=== PATIENT | female | born 1960 | race Caucasian/White ===

== ENCOUNTER 2017-08-24 08:55 | Emergency (ER) | payer OTHER ==
[2017-08-24 09:05] VITALS: BP 165/94
--- NOTE | 2017-08-24 13:39 | UC ---
Karina Mcdaniel Thomas, scribed for Christian Lovell MD on 08/24/17 at 0920 . Skin Complaint HPI - HPI Summary HPI Summary: The patient is a 56 year old female complaining of left-sided facial swelling and redness that has worsened in the last two days. There is tenderness around the redness. The eye is not involved. She denies blurred vision, eye pain, fever , and chills. - History of Current Complaint Chief Complaint: UCSkin Time Seen by Provider: 08/24/17 09:05 Stated Complaint: RASH Hx Obtained From: Patient Onset/Duration: Still Present, Worse Since - 2 days Timing: Constant Onset Severity: Mild Current Severity: Mild Pain Intensity: 0 Pain Scale Used: 0-10 Numeric Location: Other - Left side of face Character: Swelling, Redness Aggravating Factor(s): Nothing Alleviating Factor(s): Nothing Associated Signs & Symptoms: Negative: Fever, Chills - Allergy/Home Medications Allergies/Adverse Reactions: Allergies Allergy/AdvReac Type Severity Reaction Status Date / Time No Known Allergies Allergy Verified 08/24/17 09:06 Home Medications: Home Medications Atorvastatin* [Lipitor 80 MG*] 80 mg PO DAILY 08/24/17 [History Confirmed ] Ezetimibe 10 mg PO DAILY 08/24/17 [History Confirmed 08/24/17] Lisinopril TAB* [Prinivil TAB 10 MG*] 20 mg PO DAILY 08/24/17 [History Confirmed 08/24/17] Metoprolol Succinate 50 mg PO DAILY 08/24/17 [History Confirmed 08/24/17] Metoprolol Succinate 100 mg PO DAILY 08/24/17 [History Confirmed 08/24/17] Ticagrelor (NF) [Brilinta 60 MG TAB] 60 mg PO DAILY 08/24/17 [History Confirmed 08/24/17] Review of Systems Constitutional: Negative - fever, chills Skin: Other - Facial erythema, slight swelling Eyes: Negative - blurred vision, eye pain Is Patient Immunocompromised?: No All Other Systems Reviewed And Are Negative: Yes PMH/Surg Hx/FS Hx/Imm Hx Previously Healthy: No - Psoriasis; NEGATIVE: blindness - Surgical History Surgical History: None - Family History Known Family History: Negative: Cardiac Disease - Social History Alcohol Use: None Substance Use Type: None Smoking Status (MU): Never Smoked Tobacco - Immunization History Most Recent Influenza Vaccination: none Most Recent Tetanus Shot: unknown Most Recent Pneumonia Vaccination: none Physical Exam - Summary Physical Exam Summary: VITAL SIGNS: Reviewed. GENERAL: Patient is a well-developed and nourished female who is lying comfortable in the stretcher. Patient is not in any acute respiratory distress. HEAD AND FACE: Normocephalic. She has some left-sided facial erythema and slight swelling. She has some psoriasis plaques on her forehead and elbows. EYES: PERRLA, EOMI x 2. EARS: Hearing grossly intact. MOUTH: Oropharynx within normal limits. NECK: Supple, trachea is midline, no adenopathy, no JVD, no carotid bruit. CHEST: Symmetric, no tenderness at palpation LUNGS: Clear to auscultation bilaterally. No wheezing or crackles. CVS: Regular rate and rhythm, S1 and S2 present, no murmurs or gallops appreciated. ABDOMEN: Soft, non-tender. Bowel sounds are normal. No abdominal abnormal pulsations. EXTREMITIES: Full ROM in all major joints, no edema, no cyanosis or clubbing. NEURO: Alert and oriented x 3. No acute neurological deficits. Speech is normal and follows commands. SKIN: Dry and warm Triage Information Reviewed: Yes Vital Signs: Initial Vital Signs Temp 98 F 08/24/17 09:02 Pulse 100 08/24/17 09:02 Resp 20 08/24/17 09:02 BP 165/94 08/24/17 09:02 Pulse Ox 100 08/24/17 09:02 Vital Signs Reviewed: Yes Course/Dx - Course Course Of Treatment: The patient is a 56 year old female complaining of left- sided facial swelling and redness that has worsened in the last two days. There is tenderness around the redness. The eye is not involved. She denies blurred vision, eye pain, fever, and chills. On physical examination, she has some left- sided facial erythema and slight swelling. The patient is diagnosed with facial cellulitis and will be given a prescription for Bactrim. She will follow up with primary care. The patient was found to have increased BP in UC. The patient will follow up with PCP for better control of BP. I discussed all the findings and test results with the patient. Patient was instructed to return to the urgent care or go to ER immediately if any of the symptoms return or worsen. Plan of care was discussed with the patient, and patient understands and agrees. All questions were answered to patient satisfaction. There were no further complaints or concerns. - Diagnoses Provider Diagnoses: Facial cellulitis Discharge - Sign-Out/Discharge Documenting (check all that apply): Discharge - Discharge Plan Condition: Stable Disposition: HOME Prescriptions: Sulfamethox/Trimethoprim DS* [Bactrim DS 800/160 TAB*] 1 tab PO BID #20 tab Patient Education Materials: Cellulitis (ED), Cellulitis (DC) Referrals: Niels Fernandez MD [Primary Care Provider] - Additional Instructions: Take medications as instructed Increase your fluid intake Return to the UC if symptoms worsen The documentation as recorded by the Karina jarvis Thomas accurately reflects the service I personally performed and the decisions made by , Christian Lovell MD.
== END 2017-08-24 09:16 | disposition home or self-care (01) ==
LOC: UCEAST 08:55
DX: L03.211 Cellulitis of face (principal)
CPT/HCPCS: 99212; G0463

== ENCOUNTER 2018-02-26 06:55 | Inpatient (IN) | payer OTHER ==
[2018-02-26] MEDS ORDERED: Midazolam* 1 MG/ML 5 ML VIAL (5 MG) ONE (07:36)
[2018-02-26] MEDS ORDERED: fentaNYL* 50 MCG/ML 2 ML VIAL (100 MCG VIAL) ONE (07:36)
[2018-02-26] MEDS ORDERED: Diazepam TAB(*) 5 MG ONE (07:44)
[2018-02-26] MEDS ORDERED: Lidocaine 1% INJ* 10 MG/ML 30 ML SDV ONE (07:56)
[2018-02-26] MEDS ORDERED: Diazepam TAB(*) 5 MG PO ONE (08:00)
[2018-02-26] MEDS ORDERED: ceFAZolin 1 GM/10 ML flush(*) SYRINGE for pocket flush (cardiology) FLUSH ONE (08:00)
[2018-02-26] MEDS ORDERED: ceFAZolin* 2 GM* X ONE DOSE - OR, MCH (Pyxis) (Duplex) IVPB (08:00)
[2018-02-26] MEDS ORDERED: Acetaminophen TAB* 325 MG PO PRN (09:07)
[2018-02-26] MEDS ORDERED: oxyCODONE/Acetamin 5/325 MG* TAB PO PRN (09:07)
--- NOTE | 2018-02-26 10:25 | RAD ---
INDICATION: Left upper chest cardiac pacemaker placed COMPARISON: None. TECHNIQUE: Single AP portable view of the chest was obtained. FINDINGS: Image quality is compromised due to the relative inferiority of a portable chest x-ray. There is a single lead left upper chest cardiac pacemaker with surgical clips overlying the pacer. The heart and mediastinum exhibit normal size and contour. The lungs are grossly clear. There is no pneumothorax. Visualized bones are normal for the patient's age. IMPRESSION: No acute thoracic findings status post cardiac pacemaker placement.
[2018-02-26] MEDS: ceFAZolin 1 GM in Dextrose (*) 1 GM/50 ML BAG IVPB SCH (15:29)
[2018-02-26] MEDS ORDERED: Zolpidem TAB* 5 MG PO PRN (17:19)
[2018-02-26] MEDS ORDERED: Atorvastatin* 80 MG TAB PO SCH (18:00)
[2018-02-26] MEDS ORDERED: Ezetimibe TAB* 10 MG PO SCH (18:00)
[2018-02-26] MEDS ORDERED: Metoprolol Succinate XL TAB* 50 MG PO SCH (18:00)
[2018-02-26] MEDS: Lisinopril TAB* 10 MG PO SCH (20:33)
[2018-02-27] MEDS: ceFAZolin 1 GM in Dextrose (*) 1 GM/50 ML BAG IVPB SCH ×2 (00:25→07:51)
--- NOTE | 2018-02-27 03:09 | OP ---
DATE OF OPERATION: 02/26/18 - ROOM #433 DATE OF : 56 SURGEON: Dewayne Ramachandran MD ANESTHESIA: Local anesthesia with conscious sedation. PRE-OP DIAGNOSIS: Ischemic cardiomyopathy and coronary artery disease. POST-OP DIAGNOSIS: Ischemic cardiomyopathy and coronary artery disease. OPERATIVE PROCEDURE: Single chamber ICD implantation. ESTIMATED BLOOD LOSS: None. COMPLICATIONS: None. INDICATIONS: The patient is a 57-year-old female with a history of ischemic cardiomyopathy. The patient was evaluated by Dr. Phelps and was found to be at increased risk for cardiac arrhythmias. ICD implantation was recommended. DESCRIPTION OF PROCEDURE: The patient was brought to the procedure room in a fasting state. Informed consent had been obtained prior to the procedure. All labs have been reviewed. The patient was placed supine on the procedure table. The left delta pectoris was cleaned and draped in the usual fashion. 1% lidocaine was used for local anesthesia. The axillary vein was entered by a modified Seldinger technique under ultrasound guidance and a guidewire was placed. A 4-cm incision was made in the pectoral area. Blunt dissection was carried down to the pectoral fashion. A pocket was fashioned for the ICD. Over the guidewire, a 9- [place] sheath introducer was placed through which a right ventricular ICD lead was advanced to the RV apex. The ventricular lead is a [employer] model RUN594B serial number [id number] that had an R-wave sensitivity of 8.5, impendence 830 ohms, threshold 1.5 volts at 0.5 msec. The ventricular lead was sutured to the pectoral fascia. The pocket was flushed with antibiotic infused normal saline. A generator was attached to the ventricular lead. The generator is a [employer] model [id number] serial number [id number]. Device was placed in the pocket. The surgical incision was closed in 3 layers. The patient tolerated the procedure with no complications. [id number]/[facility] #: [id number] [facility] [place] [facility]
--- NOTE | 2018-02-27 08:04 | RAD ---
Indication: Device implant. Single view of the chest demonstrate no mediastinal shift. Heart is normal size and configuration. Pacemaker leads are in place. No pneumothorax is noted. IMPRESSION: Pacemaker leads in place. No pneumothorax is identified. R1
[2018-02-27] MEDS: Lisinopril TAB* 10 MG PO SCH (08:46)
[2018-02-27] MEDS ORDERED: Spironolactone TAB* 25 MG PO SCH (09:00)
[2018-02-27] MEDS ORDERED: Clopidogrel TAB* 75 MG PO SCH (09:00)
[2018-02-27] MEDS ORDERED: Aspirin EC TAB* 81 MG TAB.EC PO SCH (09:00)
[2018-02-27] MEDS ORDERED: Metoprolol Succinate XL TAB* 100 MG PO SCH (09:00)
[2018-02-27 11:58] VITALS: BP 102/60
== END 2018-02-27 11:43 | disposition home or self-care (01) | DRG 227 ==
LOC: CHICATH 06:55 → MEDTELE 09:45
PROVIDERS: ADMIT Specialist; ATTEND Specialist
PROC: 02HK3KZ Insertion of Defibrillator Lead into Right Ventricle, Percutaneous Approach (ICD-10-PCS; 2018-02-26)
PROC: 0JH608Z Insertion of Defibrillator Generator into Chest Subcutaneous Tissue and Fascia, Open Approach (ICD-10-PCS; principal; 2018-02-26 08:00)
DX: I25.5 Ischemic cardiomyopathy (principal); I25.10 Atherosclerotic heart disease of native coronary artery without angina pectoris; I50.9 Heart failure, unspecified; I11.0 Hypertensive heart disease with heart failure; L40.9 Psoriasis, unspecified; E78.5 Hyperlipidemia, unspecified; E66.9 Obesity, unspecified; Z68.38 Body mass index [BMI] 38.0-38.9, adult; I25.2 Old myocardial infarction; Z95.5 Presence of coronary angioplasty implant and graft
CPT/HCPCS: 33262; 71045; 71046; 93005; 99156; 99157; A9270-GY; C1722; C1895; J0690; J2250; J3010